=== PATIENT | male | born 1950 | race Caucasian/White ===

== ENCOUNTER 2018-04-29 08:51 | Emergency (ER) | payer MEDICARE, OTHER ==
--- NOTE | 2018-04-29 09:51 | EDM.PDOC ---
ED HPI GENERAL MEDICAL PROBLEM - General Chief Complaint: Respiratory Problem Stated Complaint: SINUS INFECTION Time Seen by Provider: 04/29/18 09:25 Source of Information: Reports: Patient History Limitations: Reports: No Limitations - History of Present Illness INITIAL COMMENTS - FREE TEXT/NARRATIVE: c/o nasal congestion x 3d pt with nasal d/c, PND, dyspepsia last night does not like [place] pot retired played golf daily until 3d ago saw Dr Stuart 6w ago with similar sxs denies seasonal allergies altho gives a h/o of fall allergies no f/c/d still smokes right cheek Pain Score (Numeric/FACES): 5 - Related Data Allergies Allergy/AdvReac Type Severity Reaction Status Date / Time Penicillins Allergy Cannot Verified 12/22/13 08:55 Remember Sulfa (Sulfonamide Allergy Cannot Verified 12/22/13 08:55 Antibiotics) Remember venom-honey bee Allergy Cannot Verified 12/22/13 08:55 [bee venom (honey bee)] Remember Home Meds: Home Meds Benazepril [Lotensin] 40 mg PO 12/22/13 [History] Warfarin Sodium [Jantoven] 10 mg PO TUFR 12/22/13 [History] Warfarin Sodium [Jantoven] 12.5 mg PO SUMOWETHSA 12/22/13 [History] Oxybutynin Chloride 5 mg PO BID #30 ml 01/17/14 [Rx] Doxycycline [Vibramycin] 100 mg PO BID #10 cap 04/29/18 [Rx] Loratadine 10 mg PO DAILY #30 tablet 04/29/18 [Rx] predniSONE [Prednisone] 20 mg PO DAILY #6 tablet 04/29/18 [Rx] Past Medical History HEENT History: Reports: Sinusitis Cardiovascular History: Reports: Hypertension Respiratory History: Reports: Other (See Below) Other Respiratory History: on and off smoker for 40 years Musculoskeletal History: Reports: Gout - Past Surgical History Respiratory Surgical History: Reports: None Social & Family History - Family History Family Medical History: Noncontributory - Tobacco Use Smoking Status *Q: Current Every Day Smoker Years of Tobacco use: 40 Packs/Tins Daily: 0.3 - Caffeine Use Caffeine Use: Reports: Coffee - Alcohol Use Days Per Week of Alcohol Use: 1 Number of Drinks Per Day: 1 Total Drinks Per Week: 1 - Recreational Drug Use Recreational Drug Use: No - Living Situation & Occupation Living situation: Reports: Occupation: Retired ED ROS GENERAL - Review of Systems Review Of Systems: See Below Constitutional: Reports: No Symptoms HEENT: Reports: Rhinitis Respiratory: Reports: No Symptoms Cardiovascular: Reports: No Symptoms Endocrine: Reports: No Symptoms GI/Abdominal: Reports: No Symptoms : Reports: No Symptoms Musculoskeletal: Reports: No Symptoms Skin: Reports: No Symptoms Neurological: Reports: No Symptoms Psychiatric: Reports: No Symptoms Hematologic/Lymphatic: Reports: No Symptoms Immunologic: Reports: No Symptoms ED EXAM, GENERAL - Physical Exam Exam: See Below Exam Limited By: No Limitations General Appearance: Alert, WD/WN, No Apparent Distress Ears: Normal External Exam, Normal Canal, Hearing Grossly Normal, Normal TMs Nose: Other (nares patent without swell despite h/o PND, no face tender) Throat/Mouth: Normal Inspection Head: Atraumatic, Normocephalic Neck: Normal Inspection, Supple, Non-Tender, Full Range of Motion Respiratory/Chest: Other (good AE, scattered wheeze (still smokes some)) Cardiovascular: No Edema, No Gallop, No JVD, No Murmur, No Rub GI/Abdominal: Soft, Non-Tender, No Distention Psychiatric: Normal Affect, Normal Mood Skin Exam: Warm, Dry, Intact, Normal Color, No Rash Lymphatic: No Adenopathy Course - Vital Signs Last Recorded V/S: Last Vital Signs Temp 36.5 C 04/29/18 09:05 Pulse 73 04/29/18 09:05 Resp 16 04/29/18 09:05 BP 161/85 H 04/29/18 09:05 Pulse Ox 96 04/29/18 09:05 Departure - Departure Time of Disposition: 09:44 Disposition: Home, Self-Care 01 Condition: Good Clinical Impression: Allergic rhinitis - Discharge Information *PRESCRIPTION DRUG MONITORING PROGRAM REVIEWED*: Not Applicable *COPY OF PRESCRIPTION DRUG MONITORING REPORT IN PATIENT KISHAN: Not Applicable Prescriptions: Doxycycline [Vibramycin] 100 mg PO BID #10 cap Loratadine 10 mg PO DAILY #30 tablet predniSONE [Prednisone] 20 mg PO DAILY #6 tablet Instructions: Allergic Rhinitis, Adult Referrals: Peter Trujillo MD [Primary Care Provider] - Additional Instructions: For infection, take doxycycline 100 mg 1 capsule 2 times a day for 5 days. To open up the sinuses and decrease drainage, take prednisone 20 mg 2 tabs today and then 1 tab daily for 4 days. To open up the sinuses and decrease drainage, take loratadine 10 mg 1 tab daily until the first freeze, longer if necessary. To open up the sinuses and decrease drainage, resume the steroid nasal spray daily until the first freeze, longer if necessary. See Dr Stuart in the next week if not better. Otherwise, see him in 3-4 weeks. Call your Physician or Return to Emergency Department if: * Your condition worsens in any way. * You develop fever greater than 100.4. * You have vomitting that does not stop with medications. * You have pain that is not controlled with medications.
== END 2018-04-29 10:00 | disposition home or self-care (01) ==
LOC: FB.ED 08:51
DX: J30.9 Allergic rhinitis, unspecified (principal); F17.210 Nicotine dependence, cigarettes, uncomplicated
CPT/HCPCS: 99282

== ENCOUNTER 2019-02-24 23:58 | Emergency (ER) | payer MEDICARE, OTHER ==
[2019-02-25] MEDS ORDERED: Albuterol/Ipratropium 3.0-0.5 MG/3 ML Neb Soln ONE (00:03)
[2019-02-25] MEDS ORDERED: Albuterol/Ipratropium 3.0-0.5 MG/3 ML Neb Soln NEB ONE (00:04)
[2019-02-25] MEDS ORDERED: Morphine 2 MG/ML Syringe IVPUSH ONE (00:09)
[2019-02-25] MEDS: Sodium Chloride 0.9% 10 ML Syringe FLUSH PRN ×2 (00:10→00:18)
--- NOTE | 2019-02-25 00:10 | EDM.PDOC ---
ED HPI GENERAL MEDICAL PROBLEM - General Stated Complaint: SOB Time Seen by Provider: 02/25/19 00:00 Source of Information: Reports: Patient, Family History Limitations: Reports: Respiratory Distress - History of Present Illness INITIAL COMMENTS - FREE TEXT/NARRATIVE: 68 y.o.w.m came with his to the ED due to acute onset of SOB. The Pt underwent a cystoscopy yesterday and was put on nitrofurantoin. Pt took his first Nitrofurantoin last night. Pt Pt had cardiac surgery 2 weeks ago. He woke up at about 10 pm with severe SOB. On arrival, the pt had exp wheezes with poor air movement. Pt is allergic to a Duoneb as per . Pt was janet to talk 3 word sentences. CP is described as "surgical wound pain", CW pain, whic he had since surgery. No Diaphoresis. No trauma, no other acute med issues. BP 120/86 RR 23 O2 100 on 15 liter NRM. Temp 36.6 Pulse 76 Onset Date: 02/24/19 Onset Time: 22:00 Duration: Minutes:, Hour(s): Location: Reports: Chest Quality: Reports: Other (SOB) Improves with: Reports: Other (O2) Worsens with: Reports: Movement Context: Reports: Other (Possible allergy to Nitrofurantoin) Associated Symptoms: Reports: Chest Pain Chest Pain Score (Numeric/FACES): 9 - Related Data Allergies Allergy/AdvReac Type Severity Reaction Status Date / Time cephalexin Allergy Tachycardia Verified 02/25/19 01:30 nitrofurantoin Allergy Respiratory Verified 02/25/19 04:19 Distress Penicillins Allergy Hives Verified 02/25/19 01:30 Sulfa (Sulfonamide Allergy Cannot Verified 02/25/19 01:00 Antibiotics) Remember sulfasalazine Allergy Hives Verified 02/25/19 01:30 venom-honey bee Allergy Edema Verified 02/25/19 01:30 [bee venom (honey bee)] Home Meds: Home Meds Warfarin Sodium [Jantoven] 10 mg PO DAILY 12/22/13 [History] Colchicine [Colcrys] 1 tab PO ASDIRECTED PRN 04/29/18 [History] Aspirin [Lo-Dose Aspirin EC] 81 mg PO DAILY 02/25/19 [History] Cholecalciferol (Vitamin D3) [Vitamin D3] 1,000 unit PO DAILY 02/25/19 [History] Folic Acid 1 mg PO DAILY 02/25/19 [History] Lisinopril 5 mg PO DAILY 02/25/19 [History] Metoprolol Tartrate 25 mg PO DAILY 02/25/19 [History] predniSONE [Prednisone] 20 mg PO DAILY #3 tablet 02/25/19 [Rx] Past Medical History HEENT History: Reports: Sinusitis Cardiovascular History: Reports: Hypertension Respiratory History: Reports: Other (See Below) Other Respiratory History: on and off smoker for 40 years Musculoskeletal History: Reports: Gout - Past Surgical History Respiratory Surgical History: Reports: None Social & Family History - Family History Family Medical History: Noncontributory - Caffeine Use Caffeine Use: Reports: Coffee - Living Situation & Occupation Living situation: Reports: Occupation: Retired ED ROS GENERAL - Review of Systems Review Of Systems: Unable To Obtain (due to resp distress) ED EXAM, GENERAL - Physical Exam Exam: See Below Exam Limited By: Respiratory Distress General Appearance: Alert, WD/WN, Moderate Distress Eye Exam: Bilateral Eye: Normal Inspection Ears: Normal External Exam Ear Exam: Bilateral Ear: Auricle Normal Nose: Normal Inspection, Normal Mucosa, No Blood Throat/Mouth: Normal Inspection, Normal Lips, Normal Voice, No Airway Compromise Head: Atraumatic, Normocephalic Neck: Normal Inspection, Supple, Non-Tender, Full Range of Motion Respiratory/Chest: No Accessory Muscle Use, Respiratory Distress, Wheezing, Prolonged Expiration Cardiovascular: Normal Peripheral Pulses, Regular Rate, Rhythm, No Edema, No Gallop, Other (tender ant chest wall) Peripheral Pulses: 2+: Brachial (L) GI/Abdominal: Normal Bowel Sounds, Soft, Non-Tender, No Organomegaly, No Abnormal Bruit, No Mass, Pelvis Stable (Male) Exam: Deferred Rectal (Males) Exam: Deferred Back Exam: Normal Inspection, Full Range of Motion Extremities: Normal Inspection, Normal Range of Motion, Non-Tender, Normal Capillary Refill Neurological: Alert, Oriented, CN II-XII Intact, Normal Cognition, Normal Gait Psychiatric: Normal Affect, Normal Mood Skin Exam: Warm, Dry, Intact, Normal Color, No Rash Lymphatic: No Adenopathy EKG INTERPRETATION EKG Date: 02/25/19 Time: 00:25 Rhythm: NSR Rate (Beats/Min): 88 [place]: Normal P-Wave: Present QRS: Normal ST-T: Depressed (ant lat leads) QT: Normal Comparison: Change From Previous EKG EKG Interpretation Comments: EKG was repeated after Tx: ST depression subsided, no change from ECG taken on Course - Vital Signs Text/Narrative:: 68 y.o.w.m came with his to the ED due to acute onset of SOB. The Pt underwent a cystoscopy yesterday and was put on nitrofurantoin. Pt took his first Nitrofurantoin last night. Pt Pt had cardiac surgery 2 weeks ago. Pt is on Coumadine. He woke up at about 10 pm with severe SOB. On arrival, the pt had exp wheezes with poor air movement. Pt is allergic to a Duoneb as per . Pt was janet to talk 3 word sentences. CP is described as "surgical wound pain", CW pain, whic he had since surgery. No Diaphoresis. No trauma, no other acute med issues. BP 120/86 RR 23 O2 100 on 15 liter NRM. Temp 36.6 Pulse 76 PE: WNWD W M in Resp distress Labs: WBC 14.7 INR 5.0 D Dimer was 1.17 Imaging: CXR: NAD. Angio CT: no PE Impression: Abx induced asthma. Hyper therapeutic INR level, S/P cardiac bypass surgery H/O Bladder CA Tx: Solu Medrol, MS, O2 by NC/NRM initially. Reexam; 100 % improved. Pt felt in his usual state of health, trequesting to be D/C'd Plan: D/C with instructions, pt stated he has an appointment at the Coumadin clinic tomorrow. Last Recorded V/S: Last Vital Signs Temp 36.6 C 02/24/19 23:58 Pulse Resp 18 02/25/19 03:00 BP 122/69 02/25/19 03:00 Pulse Ox 99 02/25/19 03:00 - Orders/Labs/Meds Orders: Active Orders 24 hr Category Date Time Status EKG Documentation Completion [RC] ASDIRECTED Care 02/25/19 00:10 Active EKG Documentation Completion [RC] ASDIRECTED Care 02/25/19 02:02 Active Oxygen Therapy, ED [RC] ASDIRECTED Care 02/24/19 23:58 Active RT Aerosol Therapy [RC] ASDIRECTED Care 02/25/19 00:06 Active Ang Chest [CT] Stat Exams 02/25/19 02:05 Ordered Chest 1V Frontal [CR] Stat Exams 02/25/19 00:04 Taken Peripheral IV Insertion Adult [OM.PC] Routine Oth 02/24/19 23:58 Ordered EKG 12 Lead [EK] Routine Ther 02/25/19 02:01 Ordered Labs: Laboratory Tests 02/25/19 02/25/19 02/25/19 Range/Units 00:30 00:30 00:30 WBC 14.9 H (4.5-12.0) X10-3/uL RBC 4.89 (4.30-5.75) x10(6)uL Hgb 14.9 (13.5-17.8) g/dL Hct 44.1 (30.0-51.3) % MCV 90.2 (80-96) fL MCH 30.6 (27.7-33.6) pg MCHC 33.9 (32.2-35.4) g/dL RDW 14.9 (11.5-15.5) % Plt Count 358 (125-369) X10(3)uL MPV 9.8 (7.4-10.4) fL Neut % (Auto) 69.4 (46-82) % Lymph % (Auto) 22.5 (13-37) % [place] % (Auto) 2.8 L (4-12) % Eos % (Auto) 5 (1.0-5.0) % Baso % (Auto) 1 (0-2) % Neut # (Auto) 10.4 H (1.6-8.3) # Lymph # (Auto) 3.3 (0.6-5.0) # [place] # (Auto) 0.4 (0.0-1.3) # Eos # (Auto) 0.7 (0.0-0.8) # Baso # (Auto) 0.1 (0.0-0.2) # PT (8.7-11.1) INR (0.89-1.13) D-Dimer, Quantitative (0.0-0.59) mg/LFEU Sodium 145 (135-145) mmol/L Potassium 4.2 (3.5-5.3) mmol/L Chloride 107 (100-110) mmol/L Carbon Dioxide 30 (21-32) mmol/L BUN 31 H (7-18) mg/dL Creatinine 1.6 H (0.70-1.30) mg/dL Est Cr Clr Drug Dosing TNP Estimated GFR (MDRD) 43 L (>60) BUN/Creatinine Ratio 19.4 (9-20) Glucose 129 H (80-116) mg/dL Calcium 9.3 (8.6-10.2) mg/dL Troponin I 0.034 (<0.017-0.056) ng/mL 02/25/19 02/25/19 Range/Units 00:30 00:30 WBC (4.5-12.0) X10-3/uL RBC (4.30-5.75) x10(6)uL Hgb (13.5-17.8) g/dL Hct (30.0-51.3) % MCV (80-96) fL MCH (27.7-33.6) pg MCHC (32.2-35.4) g/dL RDW (11.5-15.5) % Plt Count (125-369) X10(3)uL MPV (7.4-10.4) fL Neut % (Auto) (46-82) % Lymph % (Auto) (13-37) % [place] % (Auto) (4-12) % Eos % (Auto) (1.0-5.0) % Baso % (Auto) (0-2) % Neut # (Auto) (1.6-8.3) # Lymph # (Auto) (0.6-5.0) # [place] # (Auto) (0.0-1.3) # Eos # (Auto) (0.0-0.8) # Baso # (Auto) (0.0-0.2) # PT 47.7 H* (8.7-11.1) INR 5.00 H* (0.89-1.13) D-Dimer, Quantitative 1.17 H (0.0-0.59) mg/LFEU Sodium (135-145) mmol/L Potassium (3.5-5.3) mmol/L Chloride (100-110) mmol/L Carbon Dioxide (21-32) mmol/L BUN (7-18) mg/dL Creatinine (0.70-1.30) mg/dL Est Cr Clr Drug Dosing Estimated GFR (MDRD) (>60) BUN/Creatinine Ratio (9-20) Glucose (80-116) mg/dL Calcium (8.6-10.2) mg/dL Troponin I (<0.017-0.056) ng/mL Meds: Medications Discontinued Medications Generic Name Dose Route Start Last Admin Trade Name Freq PRN Reason Stop Dose Admin Albuterol/Ipratropium Confirm 02/25/19 00:03 02/25/19 01:03 Duoneb 3.0-0.5 Mg/3 Ml Administered 02/25/19 00:04 Not Given Dose 3 ml .ROUTE .STK-MED ONE Albuterol/Ipratropium 3 ml 02/25/19 00:04 02/25/19 00:05 Duoneb 3.0-0.5 Mg/3 Ml NEB 02/25/19 00:05 Not Given ONETIME ONE Iopamidol 75 ml 02/25/19 02:10 02/25/19 02:28 Isovue-370 (76%) IV 02/25/19 02:11 75 ml ONETIME ONE Administration Methylprednisolone Sodium Succinate 125 mg 02/25/19 00:14 02/25/19 00:17 Solu-Medrol IVPUSH 02/25/19 00:15 125 mg ONETIME ONE Administration Methylprednisolone Sodium Succinate Confirm 02/25/19 00:16 02/25/19 01:05 Solu-Medrol Administered 02/25/19 00:17 Not Given Dose 125 mg .ROUTE .STK-MED ONE Morphine Sulfate 2 mg 02/25/19 00:09 02/25/19 00:15 Morphine IVPUSH 02/25/19 00:10 2 mg ONETIME ONE Administration Sodium Chloride 10 ml 02/24/19 23:58 02/25/19 00:18 Saline Flush FLUSH 10 ml ASDIRECTED PRN Administration Keep Vein Open Departure - Departure Time of Disposition: 03:11 Disposition: Home, Self-Care 01 Condition: Good Clinical Impression: Allergy history, drug - Discharge Information Prescriptions: predniSONE [Prednisone] 20 mg PO DAILY #3 tablet Referrals: PCP,Not In Area [Primary Care Provider] - Forms: ED Department Discharge Additional Instructions: Please stop taking nitrofurantoin, please take prednisone as recommended, please f/u, come back if your symptoms get worse acutely - My Orders Last 24 Hours: My Active Orders 02/24/19 23:58 Oxygen Therapy, ED [RC] ASDIRECTED Peripheral IV Insertion Adult [OM.PC] Routine 02/25/19 00:04 Chest 1V Frontal [CR] Stat 02/25/19 00:06 RT Aerosol Therapy [RC] ASDIRECTED 02/25/19 00:10 EKG Documentation Completion [RC] ASDIRECTED 02/25/19 02:01 EKG 12 Lead [EK] Routine 02/25/19 02:02 EKG Documentation Completion [RC] ASDIRECTED 02/25/19 02:05 Ang Chest [CT] Stat - Assessment/Plan Last 24 Hours: My Active Orders 02/24/19 23:58 Oxygen Therapy, ED [RC] ASDIRECTED Peripheral IV Insertion Adult [OM.PC] Routine 02/25/19 00:04 Chest 1V Frontal [CR] Stat 02/25/19 00:06 RT Aerosol Therapy [RC] ASDIRECTED 02/25/19 00:10 EKG Documentation Completion [RC] ASDIRECTED 02/25/19 02:01 EKG 12 Lead [EK] Routine 02/25/19 02:02 EKG Documentation Completion [RC] ASDIRECTED 02/25/19 02:05 Ang Chest [CT] Stat
[2019-02-25] MEDS ORDERED: methylPREDNISolone Sodium Succinate 125 MG/2 ML SDV IVPUSH ONE (00:14)
[2019-02-25] MEDS ORDERED: methylPREDNISolone Sodium Succinate 125 MG/2 ML SDV ONE (00:16)
[2019-02-25] MEDS ORDERED: Iopamidol 755 Mg/ML 75 ML Bottle IV ONE (02:10)
--- NOTE | 2019-02-25 15:09 | CR ---
INDICATION: Chest pain. CHEST ONE VIEW: Portable AP upright view of the chest was obtained 02/25/19 and compared with 01/16/14 PA view. The heart appears enlarged but is significantly emphasized by the poor inspiration. A mild degree of cardiomegaly certainly may be present with new median sternotomy changes. Overlying EKG leads are noted. There appears to be some calcification in the arch of the aorta with minimal tortuosity of the aorta. A definite active infiltrate or effusion was not identified. The lungs appear to be somewhat hyperaerated raising question of COPD-- correlate clinically. Linear density at the lower middle lung field on the left may represent subsegmental atelectasis that is new compared with the previous study. Interstitial markings are slightly more prominent than on the previous study and may be on the basis of progressive pulmonary fibrosis, although interstitial edema in a patient with mild or early CHF would also be a consideration. PA and lateral views of the chest may be helpful for further evaluation when clinically possible. MTDD
== END 2019-02-25 03:20 | disposition home or self-care (01) ==
LOC: FB.ED 23:58
DX: R06.02 Shortness of breath (principal); T37.8X5A Adverse effect of other specified systemic anti-infectives and antiparasitics, initial encounter; I10 Essential (primary) hypertension; Z88.1 Allergy status to other antibiotic agents; Z88.8 Allergy status to other drugs, medicaments and biological substances; Z79.01 Long term (current) use of anticoagulants; Z79.899 Other long term (current) drug therapy; Z79.82 Long term (current) use of aspirin; R79.1 Abnormal coagulation profile; Z95.1 Presence of aortocoronary bypass graft; Z85.51 Personal history of malignant neoplasm of bladder
CPT/HCPCS: 36415; 71045; 71275; 80048; 84484; 85025; 85379; 85610; 93005; 96374; 96375; 99285; J2270; J2930; Q9967; 93010; 99284